=== PATIENT | male | born 1980 | race Two or more races ===

== ENCOUNTER 2017-06-11 06:56 | Emergency (ER) | payer OTHER ==
[~2017-06-11] VITALS: Ht 162.6 cm; Wt 97.5 kg
[2017-06-11 07:24] VITALS: BP 123/85
== END 2017-06-11 07:56 | disposition left against medical advice (07) ==
LOC: ER 06:56
DX: R11.2 Nausea with vomiting, unspecified (principal); Z53.21 Procedure and treatment not carried out due to patient leaving prior to being seen by health care provider